=== PATIENT | female | born 1975 | race Caucasian/White ===

== ENCOUNTER 2018-11-04 21:19 | Emergency (ER) | payer OTHER ==
[~2018-11-04] VITALS: Ht 160 cm; Wt 68.9 kg
[~2018-11-04 21:19] MED LIST: NKHM; VOLTAREN50 M1 PO
== END 2018-11-04 22:33 | disposition home or self-care (01) ==
LOC: ED 21:19
DX: S61.411A Laceration without foreign body of right hand, initial encounter (principal); W31.89XA Contact with other specified machinery, initial encounter; Y93.89 Activity, other specified; Y92.89 Other specified places as the place of occurrence of the external cause; Y99.0 Civilian activity done for income or pay